=== PATIENT | male | born 1980 ===

== ENCOUNTER 2018-02-21 01:27 | Inpatient (IN) | payer SELFPAY ==
--- NOTE | 2018-02-21 01:48 | C.PDOC ---
History Of Present Illness 37 year old male presents to the ED complaining of rectal bleeding for over month month and palpitations on exertion. Denies any chest pain, abdominal pain, back pain, melena, n/v/d, fever, chills, cough, sob, or any other symptoms. Chief Complaint (Nursing): Abdominal Pain History Per: Patient History/Exam Limitations: no limitations Onset/Duration Of Symptoms: Days Current Symptoms Are (Timing): Still Present Associated Symptoms: denies: Fever, Chills, Nausea, Vomiting, Diarrhea, Constipation, Urinary Symptoms Past Medical History Reviewed: Historical Data, Nursing Documentation, Vital Signs Vital Signs: Last Vital Signs Temp 98.7 F 02/21/18 01:37 Pulse 83 02/21/18 01:37 Resp 20 02/21/18 01:37 BP 155/89 H 02/21/18 01:37 Pulse Ox 100 02/21/18 01:37 - Medical History PMH: No Chronic Diseases Surgical History: No Surg Hx Family History: States: No Known Family Hx - Social History Hx Alcohol Use: Yes Hx Substance Use: No Review Of Systems Except As Marked, All Systems Reviewed And Found Negative. Constitutional: Negative for: Fever, Chills Cardiovascular: Positive for: Palpitations. Negative for: Chest Pain Respiratory: Negative for: Cough Gastrointestinal: Positive for: Hematochezia. Negative for: Nausea, Vomiting, Abdominal Pain, Diarrhea, Melena Musculoskeletal: Negative for: Back Pain Physical Exam - Physical Exam Appears: Non-toxic Skin: Warm, Dry Head: Normacephalic Eye(s): bilateral: Conjunctiva Pale Ear(s): Bilateral: Normal Nose: Normal Oral Mucosa: Moist Neck: Normal ROM, Supple Chest: Symmetrical Cardiovascular: Rhythm Regular, No Murmur Respiratory: Normal Breath Sounds, No Rales, No Rhonchi, No Wheezing Gastrointestinal/Abdominal: Soft, No Tenderness Rectal: No Melena, Blood Streaked Stool, Hemorrhoids (external hemorrhoid 3 o'clock position) Extremity: Normal ROM Extremity: Bilateral: Atraumatic Neurological/Psych: Oriented x3, Normal Speech Gait: Steady ED Course And Treatment - Laboratory Results Result Diagrams: 02/21/18 02:12 02/21/18 02:12 ECG: Interpreted By Me, Viewed By Me ECG Rhythm: Sinus Rhythm, ST/T Changes ECG Interpretation: No Acute Changes, Abnormal Interpretation Of ECG: NSR, ST-T abnormality-infero lateral laeds. abnormal tracings. Rate From EC O2 Sat by Pulse Oximetry: 100 (RA) Pulse Ox Interpretation: Normal - Other Rad CXR X-Ray: Viewed By Me, Read By Radiologist Interpretation: Chest, 2 views. Indication: Shortness of breath on exertion. Findings: The cardiac silhouette is mildly enlarged. There is mild central pulmonary venous congestion.There is bilateral peribronchial interstitial thickening suggestive of bronchitis. Unremarkable bony framework. Impression: Mild cardiomegaly. Mild central pulmonary venous congestion. Bronchitis/interstitial pulmonary congestion. . Electronically signed on Feb 21, 2018 4:28:23 AM EST by: Barb Leal M.D., Certified by [facility], MSK, Neuroradiology Medical Decision Making Medical Decision Making: Plan - Bloodwork - EKG - CXR - Old records reviewed. EKG 04/29/16, NSR, HR 61 bpm. Disposition Discussed With Dr.: Mark Jonas Doctor Will See Patient In The: Hospital Counseled Patient/Family Regarding: Diagnosis - Disposition Disposition: HOSPITALIZED Disposition Time: 02:59 Condition: STABLE - Clinical Impression Clinical Impression: Rectal bleed, Anemia - Scribe Statement The provider has reviewed the documentation as recorded by the Scribe Jennifer López All medical record entries made by the Sidibe were at my direction and personally dictated by me. I have reviewed the chart and agree that the record accurately reflects my personal performance of the history, physical exam, medical decision making, and the department course for this patient. I have also personally directed, reviewed, and agree with the discharge instructions and disposition.
[2018-02-21 02:23] LABS: ALB/GLOB RATIO 1.8 (1.0-2.1); ALBUMIN 4.6 g/dL (3.5-5.0); ALT/SGPT 161 U/L (21-72); AST/SGOT 126 U/L (17-59); BLOOD UREA NITROGEN 13 mg/dL (9-20); CALCIUM 8.9 mg/dl (8.6-10.4); GFR NON-AFRICAN AMERICAN > 60; LIPASE 181 U/L (23-300)
[2018-02-21] MEDS ORDERED: Potassium Chloride 20 mEq/15 ml LIQ UD PO STA (02:25)
[2018-02-21 02:33] LABS: INR 1.1; PARTIAL THROMBOPLASTIN TIME 31 SECONDS (21-34)
[2018-02-21 02:38] LABS: BASO # 0.2 K/uL (0.0-0.2); EOS # 0.2 K/uL (0.0-0.7); EOS % 3.1 % (0.0-4.0); LYMPH # 1.6 K/uL (1.0-4.3); LYMPH % 30.5 % (20.0-40.0); MEAN CELL VOLUME 73.4 fL (80.0-94.0); MEAN CORPUSCULAR HEMOGLOBIN 23.2 pg (27.0-31.0); MEAN CORPUSCULAR HGB CONC 31.6 g/dL (33.0-37.0); MEAN PLATELET VOLUME 7.7 fL (7.2-11.7); MONO # 0.4 K/uL (0.0-0.8); MONO % 8.5 % (0.0-10.0); NEUT # 2.9 K/uL (1.8-7.0); NEUT % 54.8 % (50.0-75.0); NRBC % 1.8 % (0.0-2.0); PLATELET COUNT 220 K/uL (130-400); RBC 2.35 Mil/uL (4.40-5.90); WHITE BLOOD COUNT 5.2 K/uL (4.8-10.8)
[2018-02-21 02:39] LABS: URINE BILIRUBIN NEGATIVE (NEGATIVE); URINE BLOOD NEGATIVE (NEGATIVE); URINE CLARITY Clear (Clear); URINE COLOR Straw (YELLOW); URINE GLUCOSE (UA) NORMAL (Normal); URINE LEUKOCYTE ESTERASE NEG Leu/uL (Negative); URINE PROTEIN NEGATIVE (NEGATIVE); URINE UROBILINOGEN NORMAL mg/dL (0.2-1.0)
[2018-02-21 02:41] LABS: BASO % 3.1 % (0.0-2.0); HEMOGLOBIN 5.5 g/dL (12.0-18.0)
[2018-02-21 02:56] LABS: D DIMER < 200 ng/mlDDU (0-243)
[2018-02-21] MEDS ORDERED: Potassium Chloride 10 mEq ER Tab PO ONE (03:16)
[2018-02-21 04:17] LABS: B-TYPE NATRIURETIC PEPTIDE 139 pg/mL (0-450)
[2018-02-21] MEDS ORDERED: Pantoprazole 80 MG in Sodium Chloride 0.9% 100 ML IVP SCH (04:45)
[2018-02-21] MEDS ORDERED: Multivitamin (MVI) 10 ML, Thiamine 100 MG, Folic Acid 1 MG in Sodium Chloride 0.9% 1,00... IV ONE (04:51)
[2018-02-21 06:16] LABS: ANISOCYTOSIS MARKED; BANDS 2 % (0-2); EOSINOPHIL 2 % (0-4); LYMPHOCYTE 24 % (20-40); MONOCYTE 3 % (0-10); NEUTROPHIL 69 % (50-75); PLATELET ESTIMATE NORMAL (NORMAL); POIKILOCYTOSIS MARKED; TOTAL CELLS COUNTED 100
[2018-02-21 06:17] LABS: HYPOCHROMIC MODERATE; MICROCYTOSIS MODERATE; POLYCHROMIC SLIGHT; SPHEROCYTES MODERATE; TARGET CELLS MODERATE
[2018-02-21 06:18] LABS: GIANT PLATELETS PRESENT; LARGE PLATELETS PRESENT; OVALOCYTES MODERATE; SCHISTOCYTES MODERATE
--- NOTE | 2018-02-21 07:48 | CP.PCM.PN ---
Subjective - Date & Time of Evaluation Date of Evaluation: 02/21/18 Time of Evaluation: 07:48 - Subjective Subjective: PGY-1 Medicine progress note for Dr. Jaylon Iverson Patient seen and examined at bedside. Patient received 2 units of PRBC. Patient states that he feels better and less tired from this morning. He has no complaints at this time. He denies fevers, chills, headaches, shortness of breath, chest pain, abdominal pain, nausea, vomiting, or diarrhea. Objective - Vital Signs/Intake and Output Vital Signs (last 24 hours): Temp Pulse Resp BP Pulse Ox 98.5 F 72 19 128/68 100 02/21/18 07:10 02/21/18 07:10 02/21/18 07:10 02/21/18 07:10 02/21/18 07:10 Intake and Output: 02/21/18 02/21/18 06:59 18:59 Output Total 3000 Balance -3000 - Medications Medications: Current Medications Pantoprazole Sodium 80 mg/ (Sodium Chloride) 100 mls @ 10 mls/hr IVP .Q10H NING Last Admin: 02/21/18 05:39 Dose: 10 mls/hr Multivitamins/Vitamin C 10 ml/Thiamine HCl 100 mg/ Folic Acid 1 mg/ Sodium Chloride 1,011.2 mls @ 100 mls/hr IV .Q10H7M ONE Stop: 02/21/18 14:57 - Labs Labs: 02/21/18 02:12 02/21/18 02:12 PT 12.0 SECONDS (9.7-12.2) 02/21/18 02:12 INR 1.1 02/21/18 02:12 APTT 31 SECONDS (21-34) 02/21/18 02:12 - Constitutional Appears: Well, Non-toxic, No Acute Distress - Head Exam Head Exam: ATRAUMATIC, NORMOCEPHALIC - Eye Exam Eye Exam: EOMI, Normal appearance - ENT Exam ENT Exam: Mucous Membranes Moist - Neck Exam Neck Exam: Normal Inspection - Respiratory Exam Respiratory Exam: Clear to Ausculation Bilateral. absent: Rales, Rhonchi, Wheezes, Respiratory Distress - Cardiovascular Exam Cardiovascular Exam: REGULAR RHYTHM, +S1, +S2. absent: Gallop, Rubs, Murmur - GI/Abdominal Exam GI & Abdominal Exam: Soft, Normal Bowel Sounds. absent: Distended, Guarding, Tenderness - Rectal Exam Rectal Exam: Bloody Stool, Hemorrhoids (External hemorrhoids noted ) - Extremities Exam Extremities Exam: Normal Inspection - Neurological Exam Neurological Exam: Alert, Awake, Oriented x3 - Psychiatric Exam Psychiatric exam: Normal Affect, Normal Mood - Skin Skin Exam: Dry, Intact, Normal Color, Warm Assessment and Plan - Assessment and Plan (Free Text) Assessment: 37 year old male with PMHx of impaired glucose tolerance and HLD presents with rectal bleeding and severe anemia. Plan: GI bleed: - Likely 2/2 to external hemorrhoids - S/p 2 units PRBC - Hgb: 5.5--> 7.5 - Repeat CBC: f/u - Ordered 2 units of PRBC - Pre-medicate with Tylenol 650mg PO and Diphenhydramine 25mg PO, 30 minutes before each transfusion - EKG: NSR @77bpm, non-specific T wave abnormality - Advance to liquid diet - GI, Dr. Peugero consulted - Patient will get a colonoscopy outpatient as per GI - f/u iron studies - f/u b12, folate - Continue to monitor Hx of IGT: - Follow up outpatient - Convention Services Manager on lifestyle modification Hx of HLD: - Patient not on any medications - Convention Services Manager on lifestyle modification - Follow up outpatient Prophylaxis: - SCDs - Chemical anticoagulation contraindicated - Protonix 40mg IV Q12 Case discussed with attending, Dr. Jaylon iVllasenor, PGY-1
[2018-02-21 08:37] LABS: IRON 18 ug/dL (49-181)
[2018-02-21 09:10] LABS: % IRON SATURATION 3 (20-55); TOTAL IRON BINDING CAPACITY 621 ug/dL (250-450)
[2018-02-21 09:34] LABS: FOLATE 11.9 ng/mL
--- NOTE | 2018-02-21 09:38 | CP.PCM.CON ---
History of Present Illness - History of Present Illness History of Present Illness: This is a 37 year old man with rectal bleeding, anemia. Patient reports having daily rectal bleeding for the past month. He has occas ional constipation but no diarrhea. He denies having abdominal pain, rectal pain, difficulty swallowing heartburn, nausea, vomiting. He further denies having chest pain, fever, chills, cough, difficulty breathing. On evaluation in the ER, VS were stable, abdominal examination was benign, but HGB was 5.5, and he was admitted. Review of Systems - Review of Systems All systems: reviewed and no additional remarkable complaints except - Constitutional Constitutional: absent: Chills, Fever - Cardiovascular Cardiovascular: Palpitations. absent: Chest Pain - Respiratory Respiratory: absent: Cough, Dyspnea - Gastrointestinal Gastrointestinal: Constipation, Hematochezia. absent: Abdominal Pain, Diarrhea, Dysphagia, Heartburn, Nausea, Vomiting Past Patient History - Past Social History Smoking Status: Heavy Smoker > 10 Cigarettes Daily - PSYCHIATRIC Hx Substance Use: No - SURGICAL HISTORY Hx Surgeries: No Meds Allergies/Adverse Reactions: Allergies Allergy/AdvReac Type Severity Reaction Status Date / Time No Known Allergies Allergy Verified 02/21/18 01:44 - Medications Medications: Current Medications Pantoprazole Sodium 80 mg/ (Sodium Chloride) 100 mls @ 10 mls/hr IVP .Q10H COUNTS INCLUDE 234 BEDS AT THE [facility] Last Admin: 02/21/18 05:39 Dose: 10 mls/hr Multivitamins/Vitamin C 10 ml/Thiamine HCl 100 mg/ Folic Acid 1 mg/ Sodium Chloride 1,011.2 mls @ 100 mls/hr IV .Q10H7M ONE Stop: 02/21/18 14:57 Last Admin: 02/21/18 07:57 Dose: 100 mls/hr Physical Exam - Constitutional Appears: No Acute Distress - Head Exam Head Exam: ATRAUMATIC, NORMOCEPHALIC - Eye Exam Eye Exam: EOMI, PERRL - Neck Exam Neck exam: Negative for: Lymphadenopathy, Thyromegaly - Respiratory Exam Respiratory Exam: NORMAL BREATHING PATTERN. absent: Rales, Rhonchi, Wheezes - Cardiovascular Exam Cardiovascular Exam: REGULAR RHYTHM, +S1, +S2. absent: Gallop, Rubs, Systolic Murmur - GI/Abdominal Exam GI & Abdominal Exam: Normal Bowel Sounds, Soft. absent: Mass, Organomegaly, Tenderness - Rectal Exam Rectal Exam: Deferred - Extremities Exam Extremities exam: Negative for: calf tenderness, pedal edema Results - Vital Signs Recent Vital Signs: Last Vital Signs Temp 98.2 F 02/21/18 08:53 Pulse 64 02/21/18 08:53 Resp 20 02/21/18 08:53 BP 139/84 02/21/18 08:53 Pulse Ox 100 02/21/18 08:53 - Labs Result Diagrams: 02/21/18 02:12 02/21/18 02:12 Labs: Laboratory Results - last 24 hr 02/21/18 02/21/18 02/21/18 01:37 02:12 02:12 WBC 5.2 RBC 2.35 L Hgb 5.5 L* D Hct 17.2 L MCV 73.4 L D MCH 23.2 L MCHC 31.6 L RDW 21.0 H Plt Count 220 MPV 7.7 Neut % (Auto) 54.8 Lymph % (Auto) 30.5 [place] % (Auto) 8.5 Eos % (Auto) 3.1 Baso % (Auto) 3.1 H Neut # (Auto) 2.9 Lymph # (Auto) 1.6 [place] # (Auto) 0.4 Eos # (Auto) 0.2 Baso # (Auto) 0.2 Neutrophils % (Manual) 69 Band Neutrophils % 2 Lymphocytes % (Manual) 24 Monocytes % (Manual) 3 Eosinophils % (Manual) 2 Platelet Estimate Normal Large Platelets Present Giant Platelets Present Polychromasia Slight Hypochromasia (manual) Moderate Poikilocytosis (manual Marked Anisocytosis (manual) Marked Microcytosis (manual) Moderate Spherocytes Moderate Target Cells Moderate Ovalocytes Moderate Schistocytes Moderate PT 12.0 INR 1.1 APTT 31 D-Dimer, Quantitative < 200 Sodium Potassium Chloride Carbon Dioxide Anion Gap BUN Creatinine Est GFR ( Amer) Est GFR (Non-Af Amer) POC Glucose (mg/dL) 132 H Random Glucose Calcium Iron TIBC % Saturation Total Bilirubin AST ALT Alkaline Phosphatase Troponin I NT-Pro-B Natriuret Pep Total Protein Albumin Globulin Albumin/Globulin Ratio Lipase Vitamin B12 Folate Urine Color Urine Clarity Urine pH Ur Specific [place] Urine Protein Urine Glucose (UA) Urine Ketones Urine Blood Urine Nitrate Urine Bilirubin Urine Urobilinogen Ur Leukocyte Esterase Urine WBC (Auto) Stool Occult Blood Blood Type Blood Type Confirm Antibody Screen 02/21/18 02/21/1802/21/18 02:12 02:12 02:25 WBC RBC Hgb Hct MCV MCH MCHC RDW Plt Count MPV Neut % (Auto) Lymph % (Auto) [place] % (Auto) Eos % (Auto) Baso % (Auto) Neut # (Auto) Lymph # (Auto) [place] # (Auto) Eos # (Auto) Baso # (Auto) Neutrophils % (Manual) Band Neutrophils % Lymphocytes % (Manual) Monocytes % (Manual) Eosinophils % (Manual) Platelet Estimate Large Platelets Giant Platelets Polychromasia Hypochromasia (manual) Poikilocytosis (manual Anisocytosis (manual) Microcytosis (manual) Spherocytes Target Cells Ovalocytes Schistocytes PT INR APTT D-Dimer, Quantitative Sodium 139 Potassium 3.4 L Chloride 106 Carbon Dioxide 23 Anion Gap 14 BUN 13 Creatinine 0.9 Est GFR ( Amer) > 60 Est GFR (Non-Af Amer) > 60 POC Glucose (mg/dL) Random Glucose 106 Calcium 8.9 Iron TIBC % Saturation Total Bilirubin 0.4 AST 126 H ALT 161 H D Alkaline Phosphatase 60 Troponin I < 0.0120 NT-Pro-B Natriuret Pep 139 Total Protein 7.1 Albumin 4.6 Globulin 2.6 Albumin/Globulin Ratio 1.8 Lipase 181 Vitamin B12 Folate Urine Color Urine Clarity Urine pH Ur Specific [place] Urine Protein Urine Glucose (UA) Urine Ketones Urine Blood Urine Nitrate Urine Bilirubin Urine Urobilinogen Ur Leukocyte Esterase Urine WBC (Auto) Stool Occult Blood Negative Blood Type A POSITIVE Blood Type Confirm A POSITIVE Antibody Screen Negative 02/21/18 02/21/18 02/21/18 02:34 07:45 07:45 WBC RBC Hgb Hct MCV MCH MCHC RDW Plt Count MPV Neut % (Auto) Lymph % (Auto) [place] % (Auto) Eos % (Auto) Baso % (Auto) Neut # (Auto) Lymph # (Auto) [place] # (Auto) Eos # (Auto) Baso # (Auto) Neutrophils % (Manual) Band Neutrophils % Lymphocytes % (Manual) Monocytes % (Manual) Eosinophils % (Manual) Platelet Estimate Large Platelets Giant Platelets Polychromasia Hypochromasia (manual) Poikilocytosis (manual Anisocytosis (manual) Microcytosis (manual) Spherocytes Target Cells Ovalocytes Schistocytes PT INR APTT D-Dimer, Quantitative Sodium Potassium Chloride Carbon Dioxide Anion Gap BUN Creatinine Est GFR ( Amer) Est GFR (Non-Af Amer) POC Glucose (mg/dL) Random Glucose Calcium Iron 18 L TIBC 621 H % Saturation 3 L Total Bilirubin AST ALT Alkaline Phosphatase Troponin I NT-Pro-B Natriuret Pep Total Protein Albumin Globulin Albumin/Globulin Ratio Lipase Vitamin B12 606 Folate 11.9 Urine Color Straw Urine Clarity Clear Urine pH 7.0 Ur Specific [place] 1.010 Urine Protein Negative Urine Glucose (UA) Normal Urine Ketones Negative Urine Blood Negative Urine Nitrate Negative Urine Bilirubin Negative Urine Urobilinogen Normal Ur Leukocyte Esterase Neg Urine WBC (Auto) < 1 Stool Occult Blood Blood Type Blood Type Confirm Antibody Screen Assessment & Plan (1) Lower GI bleed Assessment and Plan: Patient has persistent rectal bleeding for the past month. HGB on admission is 5.5, and iron level is low. The initial stool for occult blood was negative. Patient should have colonoscopy after transfusion. Status: Acute
--- NOTE | 2018-02-21 09:41 | RAD ---
Date of service: 02/21/2018 HISTORY: SOB on exertion COMPARISON: No prior. TECHNIQUE: Chest PA and lateral FINDINGS: LUNGS: Mild venous congestion. Mild patchy increased markings at the lung bases. Right hilar prominence. PLEURA: No significant pleural effusion identified. No pneumothorax apparent. CARDIOVASCULAR: No aortic atherosclerotic calcification present. Normal cardiac size. OSSEOUS STRUCTURES: No significant abnormalities. VISUALIZED UPPER ABDOMEN: Normal. OTHER FINDINGS: None. IMPRESSION: Mild venous congestion. Mild patchy increased markings at the lung bases. Right hilar prominence.
--- NOTE | 2018-02-21 10:19 | CP.PCM.HP ---
<Lindsay Jackson P - Last Filed: 02/21/18 09:59> History of Present Illness - History of Present Illness History of Present Illness: H&P for hospitalist service CC: Rectal bleeding HPI: 37 year old male with PMHx of impaired glucose tolerance and HLD presents to ED with complaints of rectal bleeding for the past month. 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 States he decided to come to ED due to a family member's concern. Patient also complains of palpitations, shortness of breath and chest tightness on exertion. Patient experienced mild generalized abdominal pain a few days ago, which has since resolved spontaneously. Patient reports constipation and having to strain to have a bowel movement. He denies fever, chills, lightheadedness, dizziness, hematuria, cough, vomiting, and hematemesis. PMHx: impaired glucose tolerance and HLD PSHx: denies Meds: none Allergies: NKDA FamHx: Brother, 43 years old has lung cancer and stomach cancer SocHx: former smoker, used to smoke 5 cigarettes per day for 3 years. Drinks alcohol once a week 10-15 beers, has gotten shakes before. Last drink was 20 days ago. 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 Lives in [place], was in [place] to visit his brother. PMD: Lis Latifueroa in [place] Code status: full code Review of Systems: -Gen: No fever, No chills, No headache, No lethargy, No weakness. -HEENT: No dizziness, No change in vision, No change in hearing, No sore throat, No dysphagia, No nasal congestion, No mucous. -Cardio: + chest pain, + palpitations, No lower extremity edema, No orthopnea. -Resp: No cough, No dyspnea, No hemoptysis, No wheezing, No pain on inspiration. -GI: + abdominal pain, + nausea, No vomiting, No diarrhea, +constipation, + hematochezia, No hematemesis. -: No dysuria, No urinary freq, No incontinence, No hematuria, No change in urinary stream. -MSK: No back pain, No muscle weakness, No radiating pain. -Skin: No itching, No rash, No lesions. -Neuro: No confusion, No numbness, No tingling, No focal weakness, No radicular pain, No syncope. -Psych: No anxiety, No depression, No H/I, No S/I, No hallucinations. Present on Admission - Present on Admission Any Indicators Present on Admission: No Past Patient History - Past Social History Smoking Status: Heavy Smoker > 10 Cigarettes Daily - PSYCHIATRIC Hx Substance Use: No - SURGICAL HISTORY Hx Surgeries: No Meds Allergies/Adverse Reactions: Allergies Allergy/AdvReac Type Severity Reaction Status Date / Time No Known Allergies Allergy Verified 02/21/18 01:44 Physical Exam - Constitutional Appears: Non-toxic, No Acute Distress - Head Exam Head Exam: ATRAUMATIC, NORMOCEPHALIC - Eye Exam Eye Exam: EOMI, Normal appearance, PERRL - ENT Exam ENT Exam: Mucous Membranes Dry - Neck Exam Neck exam: Positive for: Full Rom, Normal Inspection. Negative for: Lymphadenopathy, Tenderness - Respiratory Exam Respiratory Exam: Clear to Auscultation Bilateral. absent: Rales, Rhonchi, Wheezes - Cardiovascular Exam Cardiovascular Exam: REGULAR RHYTHM, +S1, +S2 - GI/Abdominal Exam GI & Abdominal Exam: Normal Bowel Sounds, Soft. absent: Guarding, Rebound, Tenderness - Extremities Exam Extremities exam: Positive for: full ROM, normal capillary refill, pedal pulses present. Negative for: calf tenderness, tenderness - Neurological Exam Neurological exam: Alert, CN II-XII Intact, Oriented x3 - Psychiatric Exam Psychiatric exam: Normal Affect, Normal Mood - Skin Skin Exam: Dry, Intact, Normal Color, Warm Results - Vital Signs Recent Vital Signs: Last Vital Signs Temp 98.2 F 02/21/18 08:53 Pulse 64 02/21/18 08:53 Resp 20 02/21/18 08:53 BP 139/84 02/21/18 08:53 Pulse Ox 100 02/21/18 08:53 - Labs Result Diagrams: 02/21/18 02:12 02/21/18 02:12 Labs: Laboratory Results - last 24 hr 02/21/18 02/21/18 02/21/18 01:37 02:12 02:12 WBC 5.2 RBC 2.35 L Hgb 5.5 L* D Hct 17.2 L MCV 73.4 L D MCH 23.2 L MCHC 31.6 L RDW 21.0 H Plt Count 220 MPV 7.7 Neut % (Auto) 54.8 Lymph % (Auto) 30.5 Moca % (Auto) 8.5 Eos % (Auto) 3.1 Baso % (Auto) 3.1 H Neut # (Auto) 2.9 Lymph # (Auto) 1.6 Moca # (Auto) 0.4 Eos # (Auto) 0.2 Baso # (Auto) 0.2 Neutrophils % (Manual) 69 Band Neutrophils % 2 Lymphocytes % (Manual) 24 Monocytes % (Manual) 3 Eosinophils % (Manual) 2 Platelet Estimate Normal Large Platelets Present Giant Platelets Present Polychromasia Slight Hypochromasia (manual) Moderate Poikilocytosis (manual Marked Anisocytosis (manual) Marked Microcytosis (manual) Moderate Spherocytes Moderate Target Cells Moderate Ovalocytes Moderate Schistocytes Moderate PT 12.0 INR 1.1 APTT 31 D-Dimer, Quantitative < 200 Sodium Potassium Chloride Carbon Dioxide Anion Gap BUN Creatinine Est GFR ( Amer) Est GFR (Non-Af Amer) POC Glucose (mg/dL) 132 H Random Glucose Calcium Iron TIBC % Saturation Total Bilirubin AST ALT Alkaline Phosphatase Troponin I NT-Pro-B Natriuret Pep Total Protein Albumin Globulin Albumin/Globulin Ratio Lipase Vitamin B12 Folate Urine Color Urine Clarity Urine pH Ur Specific [place] Urine Protein Urine Glucose (UA) Urine Ketones Urine Blood Urine Nitrate Urine Bilirubin Urine Urobilinogen Ur Leukocyte Esterase Urine WBC (Auto) Stool Occult Blood Blood Type Blood Type Confirm Antibody Screen 02/21/18 02/21/18 02/21/18 02:12 02:12 02:25 WBC RBC Hgb Hct MCV MCH MCHC RDW Plt Count MPV Neut % (Auto) Lymph % (Auto) Moca % (Auto) Eos % (Auto) Baso % (Auto) Neut # (Auto) Lymph # (Auto) Moca # (Auto) Eos # (Auto) Baso # (Auto) Neutrophils % (Manual) Band Neutrophils % Lymphocytes % (Manual) Monocytes % (Manual) Eosinophils % (Manual) Platelet Estimate Large Platelets Giant Platelets Polychromasia Hypochromasia (manual) Poikilocytosis (manual Anisocytosis (manual) Microcytosis (manual) Spherocytes Target Cells Ovalocytes Schistocytes PT INR APTT D-Dimer, Quantitative Sodium 139 Potassium 3.4 L Chloride 106 Carbon Dioxide 23 Anion Gap 14 BUN 13 Creatinine 0.9 Est GFR ( Amer) > 60 Est GFR (Non-Af Amer) > 60 POC Glucose (mg/dL) Random Glucose 106 Calcium 8.9 Iron TIBC % Saturation Total Bilirubin 0.4 AST 126 H ALT 161 H D Alkaline Phosphatase 60 Troponin I < 0.0120 NT-Pro-B Natriuret Pep 139 Total Protein 7.1 Albumin 4.6 Globulin 2.6 Albumin/Globulin Ratio 1.8 Lipase 181 Vitamin B12 Folate Urine Color Urine Clarity Urine pH Ur Specific [place] Urine Protein Urine Glucose (UA) Urine Ketones Urine Blood Urine Nitrate Urine Bilirubin Urine Urobilinogen Ur Leukocyte Esterase Urine WBC (Auto) Stool Occult Blood Negative Blood Type A POSITIVE Blood Type Confirm A POSITIVE Antibody Screen Negative 02/21/18 02/21/18 02/21/18 02:34 07:45 07:45 WBC RBC Hgb Hct MCV MCH MCHC RDW Plt Count MPV Neut % (Auto) Lymph % (Auto) Moca % (Auto) Eos % (Auto) Baso % (Auto) Neut # (Auto) Lymph # (Auto) Moca # (Auto) Eos # (Auto) Baso # (Auto) Neutrophils % (Manual) Band Neutrophils % Lymphocytes % (Manual) Monocytes % (Manual) Eosinophils % (Manual) Platelet Estimate Large Platelets Giant Platelets Polychromasia Hypochromasia (manual) Poikilocytosis (manual Anisocytosis (manual) Microcytosis (manual) Spherocytes Target Cells Ovalocytes Schistocytes PT INR APTT D-Dimer, Quantitative Sodium Potassium Chloride Carbon Dioxide Anion Gap BUN Creatinine Est GFR ( Amer) Est GFR (Non-Af Amer) POC Glucose (mg/dL) Random Glucose Calcium Iron 18 L TIBC 621 H % Saturation 3 L Total Bilirubin AST ALT Alkaline Phosphatase Troponin I NT-Pro-B Natriuret Pep Total Protein Albumin Globulin Albumin/Globulin Ratio Lipase Vitamin B12 606 Folate 11.9 Urine Color Straw Urine Clarity Clear Urine pH 7.0 Ur Specific [place] 1.010 Urine Protein Negative Urine Glucose (UA) Normal Urine Ketones Negative Urine Blood Negative Urine Nitrate Negative Urine Bilirubin Negative Urine Urobilinogen Normal Ur Leukocyte Esterase Neg Urine WBC (Auto) < 1 Stool Occult Blood Blood Type Blood Type Confirm Antibody Screen Assessment & Plan - Assessment and Plan (Free Text) Plan: 37 year old male with PMHx of impaired glucose tolerance and HLD presents with rectal bleeding and severe anemia. GI bleed Anemia -Hgb: 5.5 -EKG: NSR @77bpm, non-specific T wave abnormality -NPO -IVF at 100ml/hr -Protonix drip -GI, Dr. Peguero, consulted -Type and cross -Type and screen -Transfuse 2 u PRBC -f/u iron studies -f/u b12, folate -Repeat CBC Hx of IGT -follow up outpatient -Tank Officer on lifestyle modification Hx HLD -Patient not on any medications -Tank Officer on lifestyle modification -follow up outpatient Prophylaxis -SCDs -chemical anticoagulation contraindicated -Protonix drip Case discussed with attending, Dr. Jonas. <Mark Jonas - Last Filed: 02/22/18 19:13> Results - Vital Signs Recent Vital Signs: Last Vital Signs Temp 97.8 F 02/22/18 07:00 Pulse 55 L 02/22/18 07:00 Resp 20 02/22/18 07:00 BP 126/78 02/22/18 07:00 Pulse Ox 98 02/22/18 07:00 - Labs Result Diagrams: 02/22/18 11:24 02/22/18 11:24 Labs: Laboratory Results - last 24 hr 02/21/18 02/21/18 02/22/18 02:25 18:34 11:24 WBC RBC Hgb Hct MCV MCH MCHC RDW Plt Count MPV Neut % (Auto) Lymph % (Auto) Moca % (Auto) Eos % (Auto) Baso % (Auto) Neut # (Auto) Lymph # (Auto) Moca # (Auto) Eos # (Auto) Baso # (Auto) Neutrophils % (Manual) 61 Band Neutrophils % 2 Lymphocytes % (Manual) 22 Monocytes % (Manual) 8 Eosinophils % (Manual) 5 H Basophils % (Manual) 1 Myelocytes % 1 H Nucleated RBC % Platelet Estimate Normal Plt Clumps, EDTA Giant Platelets Hypochromasia (manual) Moderate Anisocytosis (manual) Moderate Ovalocytes Sodium Potassium Chloride Carbon Dioxide Anion Gap BUN Creatinine Est GFR ( Amer) Est GFR (Non-Af Amer) Random Glucose Calcium Phosphorus Magnesium Ferritin 13.5 Total Bilirubin AST ALT Alkaline Phosphatase Total Protein Albumin Globulin Albumin/Globulin Ratio Triglycerides Cholesterol LDL Cholesterol Direct HDL Cholesterol Hepatitis A IgM Ab Hep Bs Antigen Hep B Core IgM Ab Hepatitis C Antibody HIV 1&2 Antibody Screen Blood Type A POSITIVE Blood Type Confirm A POSITIVE Antibody Screen Negative 1102/22/18 02/22/18 11:24 11:24 11:24 WBC 4.3 L RBC 3.84 L Hgb 9.8 L D Hct 30.0 L MCV 78.2 L D MCH 25.6 L MCHC 32.7 L RDW 20.2 H Plt Count 213 MPV 7.7 Neut % (Auto) 58.8 Lymph % (Auto) 24.9 Moca % (Auto) 8.5 Eos % (Auto) 4.2 H Baso % (Auto) 3.6 H Neut # (Auto) 2.5 Lymph # (Auto) 1.1 Moca # (Auto) 0.4 Eos # (Auto) 0.2 Baso # (Auto) 0.2 Neutrophils % (Manual) 58 Band Neutrophils % 1 Lymphocytes % (Manual) 24 Monocytes % (Manual) 8 Eosinophils % (Manual) 5 H Basophils % (Manual) 4 H Myelocytes % Nucleated RBC % 5 H Platelet Estimate Normal Plt Clumps, EDTA Giant Platelets Present Hypochromasia (manual) Slight Anisocytosis (manual) Moderate Ovalocytes Slight Sodium 137 Potassium 3.8 Chloride 101 Carbon Dioxide 24 Anion Gap 15 BUN 9 Creatinine 0.7 L Est GFR ( Amer) > 60 Est GFR (Non-Af Amer) > 60 Random Glucose 89 Calcium 9.2 Phosphorus 4.0 Magnesium 2.2 Ferritin Total Bilirubin 0.9 AST 68 H D ALT 118 H D Alkaline Phosphatase 63 Total Protein 7.2 Albumin 4.6 Globulin 2.6 Albumin/Globulin Ratio 1.8 Triglycerides 323 H Cholesterol 161 LDL Cholesterol Direct 63 HDL Cholesterol 35 Hepatitis A IgM Ab Negative Hep Bs Antigen Negative Hep B Core IgM Ab Negative Hepatitis C Antibody Negative HIV 1&2 Antibody Screen Blood Type Blood Type Confirm Antibody Screen 02/22/18 11:24 WBC RBC Hgb Hct MCV MCH MCHC RDW Plt Count MPV Neut % (Auto) Lymph % (Auto) Moca % (Auto) Eos % (Auto) Baso % (Auto) Neut # (Auto) Lymph # (Auto) Moca # (Auto) Eos # (Auto) Baso # (Auto) Neutrophils % (Manual) Band Neutrophils % Lymphocytes % (Manual) Monocytes % (Manual) Eosinophils % (Manual) Basophils % (Manual) Myelocytes % Nucleated RBC % Platelet Estimate Plt Clumps, EDTA Giant Platelets Hypochromasia (manual) Anisocytosis (manual) Ovalocytes Sodium Potassium Chloride Carbon Dioxide Anion Gap BUN Creatinine Est GFR ( Amer) Est GFR (Non-Af Amer) Random Glucose Calcium Phosphorus Magnesium Ferritin Total Bilirubin AST ALT Alkaline Phosphatase Total Protein Albumin Globulin Albumin/Globulin Ratio Triglycerides Cholesterol LDL Cholesterol Direct HDL Cholesterol Hepatitis A IgM Ab Hep Bs Antigen Hep B Core IgM Ab Hepatitis C Antibody HIV 1&2 Antibody Screen Negative Blood Type Blood Type Confirm Antibody Screen Assessment & Plan - Date & Time Date: 02/22/18 (I have seen and examined the patient. I agree with findings and plan of care as documented by Dr. Jackson. Patient with GI bleed and severe anemia. Consult to GI. Transfuse PRBCs. Monitor hemodynamic status. Protonix drip. Monitor for acute changes.) Time: 19:08 Attending/Attestation - Attestation I have personally seen and examined this patient.: Yes I have fully participated in the care of the patient.: Yes I have reviewed all pertinent clinical information: Yes
[2018-02-21] MEDS ORDERED: Pantoprazole 80 MG in Sodium Chloride 0.9% 100 ML IV SCH (16:00)
[2018-02-21 18:37] LABS: BASO # 0.2 K/uL (0.0-0.2); EOS # 0.2 K/uL (0.0-0.7); MONO # 0.4 K/uL (0.0-0.8); NEUT # 3.2 K/uL (1.8-7.0)
[2018-02-21 18:54] LABS: BASO % 3.6 % (0.0-2.0); EOS % 3.2 % (0.0-4.0); LYMPH # 1.1 K/uL (1.0-4.3); LYMPH % 21.8 % (20.0-40.0); MEAN CORPUSCULAR HEMOGLOBIN 23.6 pg (27.0-31.0); MEAN CORPUSCULAR HGB CONC 31.2 g/dL (33.0-37.0); MEAN PLATELET VOLUME 7.3 fL (7.2-11.7); MONO % 7.5 % (0.0-10.0); NEUT % 63.9 % (50.0-75.0); NRBC % 0.9 % (0.0-2.0); PLATELET COUNT 211 K/uL (130-400); RBC 3.18 Mil/uL (4.40-5.90); RED CELL DISTRIBUTION WIDTH 21.5 % (11.5-14.5)
[2018-02-21 18:58] LABS: HEMOGLOBIN 7.5 g/dL (12.0-18.0); MEAN CELL VOLUME 75.7 fL (80.0-94.0)
[2018-02-21 19:09] LABS: BANDS 2 % (0-2); BASOPHIL 1 % (0-2); EOSINOPHIL 5 % (0-4); LYMPHOCYTE 22 % (20-40); MONOCYTE 8 % (0-10); MYELOCYTE 1 % (0-0); NEUTROPHIL 61 % (50-75); TOTAL CELLS COUNTED 100
[2018-02-21 19:10] LABS: ANISOCYTOSIS MODERATE; HYPOCHROMIC MODERATE; PLATELET ESTIMATE NORMAL (NORMAL)
[2018-02-22 05:24] VITALS: RESP 20
--- NOTE | 2018-02-22 07:40 | CP.PCM.PN ---
Subjective - Date & Time of Evaluation Date of Evaluation: 02/22/18 Time of Evaluation: 07:40 Objective - Vital Signs/Intake and Output Vital Signs (last 24 hours): Temp Pulse Resp BP Pulse Ox 97.9 F 51 L 20 120/74 96 02/22/18 05:23 02/22/18 05:23 02/22/18 05:23 02/22/18 05:23 02/22/18 00:00 Intake and Output: 02/22/18 02/22/18 06:59 18:59 Intake Total 700 Balance 700 - Medications Medications: Current Medications Acetaminophen (Tylenol 325mg Tab) 650 mg PO Q3H PRN PRN Reason: Allergy symptoms Last Admin: 02/22/18 01:46 Dose: 650 mg Diphenhydramine HCl (Benadryl) 25 mg PO Q3H PRN PRN Reason: Allergy symptoms Last Admin: 02/22/18 01:46 Dose: 25 mg Ferrous Sulfate (Feosol) 325 mg PO DAILY NING Last Admin: 02/21/18 16:30 Dose: 325 mg Pantoprazole Sodium (Protonix Inj) 40 mg IVP Q12H NING Last Admin: 02/22/18 04:07 Dose: 40 mg - Labs Labs: 02/21/18 18:34 02/21/18 02:12 PT 12.0 SECONDS (9.7-12.2) 02/21/18 02:12 INR 1.1 02/21/18 02:12 APTT 31 SECONDS (21-34) 02/21/18 02:12
[2018-02-22 07:43] VITALS: BP 126/78; PULSE 55; TEMP 97.8; O2SAT 98
[2018-02-22] MEDS ORDERED: Pantoprazole 80 MG in Sodium Chloride 0.9% 100 ML IV SCH (09:00)
[2018-02-22 11:33] LABS: MEAN CORPUSCULAR HEMOGLOBIN 25.6 pg (27.0-31.0); MEAN CORPUSCULAR HGB CONC 32.7 g/dL (33.0-37.0); MEAN PLATELET VOLUME 7.7 fL (7.2-11.7); PLATELET COUNT 213 K/uL (130-400); RBC 3.84 Mil/uL (4.40-5.90); RED CELL DISTRIBUTION WIDTH 20.2 % (11.5-14.5); WHITE BLOOD COUNT 4.3 K/uL (4.8-10.8)
[2018-02-22 11:45] LABS: HEMOGLOBIN 9.8 g/dL (12.0-18.0); MEAN CELL VOLUME 78.2 fL (80.0-94.0)
[2018-02-22 12:08] LABS: ALB/GLOB RATIO 1.8 (1.0-2.1); ALBUMIN 4.6 g/dL (3.5-5.0); ALT/SGPT 118 U/L (21-72); AST/SGOT 68 U/L (17-59); BLOOD UREA NITROGEN 9 mg/dL (9-20); CALCIUM 9.2 mg/dl (8.6-10.4); GFR NON-AFRICAN AMERICAN > 60; HDL CHOLESTEROL 35 mg/dL (30-70)
[2018-02-22 12:13] LABS: BASO % 3.6 % (0.0-2.0); EOS % 4.2 % (0.0-4.0); LYMPH % 24.9 % (20.0-40.0); MONO % 8.5 % (0.0-10.0); NEUT % 58.8 % (50.0-75.0); NRBC % 2.6 % (0.0-2.0)
[2018-02-22 12:14] LABS: BASO # 0.2 K/uL (0.0-0.2); EOS # 0.2 K/uL (0.0-0.7); LYMPH # 1.1 K/uL (1.0-4.3); MONO # 0.4 K/uL (0.0-0.8); NEUT # 2.5 K/uL (1.8-7.0)
[2018-02-22 12:15] LABS: ANISOCYTOSIS MODERATE; BANDS 1 % (0-2); BASOPHIL 4 % (0-2); EOSINOPHIL 5 % (0-4); LDL CHOLESTEROL 63 mg/dL (0-129); LYMPHOCYTE 24 % (20-40); MONOCYTE 8 % (0-10); NEUTROPHIL 58 % (50-75); NUCLEATED RED BLOOD CELL 5 % (0-0); PLATELET ESTIMATE NORMAL (NORMAL); TOTAL CELLS COUNTED 100
[2018-02-22 12:16] LABS: GIANT PLATELETS PRESENT; HYPOCHROMIC SLIGHT; OVALOCYTES SLIGHT
[2018-02-22 12:30] LABS: HEPATITIS A IGM NEGATIVE (NEGATIVE); HEPATITIS B CORE AB NEGATIVE (NEGATIVE)
[2018-02-22 12:42] LABS: HEPATITIS C ANTIBODY NEGATIVE (NEGATIVE)
[2018-02-22 12:55] LABS: HEPATITIS B SURFACE AG Negative (NEGATIVE)
--- NOTE | 2018-02-22 13:26 | CP.PCM.DIS ---
Provider - Provider Date of Admission: 02/21/18 03:08 Attending physician: Sarkis Iverson MD Time Spent in preparation of Discharge (in minutes): 45 Diagnosis - Discharge Diagnosis (1) Anemia Status: Resolved (2) External hemorrhoid Status: Chronic (3) Rectal bleed Status: Chronic Hospital Course - Lab Results Lab Results: Most Recent Lab Values WBC 4.3 K/uL (4.8-10.8) L 02/22/18 11:24 RBC 3.84 Mil/uL (4.40-5.90) L 02/22/18 11:24 Hgb 9.8 g/dL (12.0-18.0) L D 02/22/18 11:24 Hct 30.0 % (35.0-51.0) L 02/22/18 11:24 MCV 78.2 fL (80.0-94.0) L D 02/22/18 11:24 MCH 25.6 pg (27.0-31.0) L 02/22/18 11:24 MCHC 32.7 g/dL (33.0-37.0) L 02/22/18 11:24 RDW 20.2 % (11.5-14.5) H 02/22/18 11:24 Plt Count 213 K/uL (130-400) 02/22/18 11:24 MPV 7.7 fL (7.2-11.7) 02/22/18 11:24 Neut % (Auto) 58.8 % (50.0-75.0) 02/22/18 11:24 Lymph % (Auto) 24.9 % (20.0-40.0) 02/22/18 11:24 [place] % (Auto) 8.5 % (0.0-10.0) 02/22/18 11:24 Eos % (Auto) 4.2 % (0.0-4.0) H 02/22/18 11:24 Baso % (Auto) 3.6 % (0.0-2.0) H 02/22/18 11:24 Neut # (Auto) 2.5 K/uL (1.8-7.0) 02/22/18 11:24 Lymph # (Auto) 1.1 K/uL (1.0-4.3) 02/22/18 11:24 [place] # (Auto) 0.4 K/uL (0.0-0.8) 02/22/18 11:24 Eos # (Auto) 0.2 K/uL (0.0-0.7) 02/22/18 11:24 Baso # (Auto) 0.2 K/uL (0.0-0.2) 02/22/18 11:24 Neutrophils % (Manual) 58 % (50-75) 02/22/18 11:24 Band Neutrophils % 1 % (0-2) 02/22/18 11:24 Lymphocytes % (Manual) 24 % (20-40) 02/22/18 11:24 Monocytes % (Manual) 8 % (0-10) 02/22/18 11:24 Eosinophils % (Manual) 5 % (0-4) H 02/22/18 11:24 Basophils % (Manual) 4 % (0-2) H 02/22/18 11:24 Myelocytes % 1 % (0-0) H 02/21/18 18:34 Nucleated RBC % 5 % (0-0) H 02/22/18 11:24 Platelet Estimate Normal (NORMAL) 02/22/18 11:24 Plt Clumps, EDTA 02/22/18 11:24 Large Platelets Present 02/21/18 02:12 Giant Platelets Present 02/22/18 11:24 Polychromasia Slight 02/21/18 02:12 Hypochromasia (manual) Slight 02/22/18 11:24 Poikilocytosis (manual Marked 02/21/18 02:12 Anisocytosis (manual) Moderate 02/22/18 11:24 Microcytosis (manual) Moderate 02/21/18 02:12 Spherocytes Moderate 02/21/18 02:12 Target Cells Moderate 02/21/18 02:12 Ovalocytes Slight 02/22/18 11:24 Schistocytes Moderate 02/21/18 02:12 PT 12.0 SECONDS (9.7-12.2) 02/21/18 02:12 INR 1.1 02/21/18 02:12 APTT 31 SECONDS (21-34) 02/21/18 02:12 D-Dimer, Quantitative < 200 ng/mlDDU (0-243) 02/21/18 02:12 Sodium 137 mmol/L (132-148) 02/22/18 11:24 Potassium 3.8 mmol/L (3.6-5.2) 02/22/18 11:24 Chloride 101 mmol/L (98-107) 02/22/18 11:24 Carbon Dioxide 24 mmol/L (22-30) 02/22/18 11:24 Anion Gap 15 (10-20) 02/22/18 11:24 BUN 9 mg/dL (9-20) 02/22/18 11:24 Creatinine 0.7 mg/dL (0.8-1.5) L 02/22/18 11:24 Est GFR ( Amer) > 60 02/22/18 11:24 Est GFR (Non-Af Amer) > 60 02/22/18 11:24 POC Glucose (mg/dL) 132 mg/dL (65-110) H 02/21/18 01:37 Random Glucose 89 mg/dL (75-110) 02/22/18 11:24 Calcium 9.2 mg/dl (8.6-10.4) 02/22/18 11:24 Phosphorus 4.0 mg/dL (2.5-4.5) 02/22/18 11:24 Magnesium 2.2 mg/dL (1.6-2.3) 02/22/18 11:24 Iron 18 ug/dL (49-181) L 02/21/18 07:45 TIBC 621 ug/dL (250-450) H 02/21/18 07:45 % Saturation 3 (20-55) L 02/21/18 07:45 Ferritin 13.5 ng/mL 02/22/18 11:24 Total Bilirubin 0.9 mg/dL (0.2-1.3) 02/22/18 11:24 AST 68 U/L (17-59) H D 02/22/18 11:24 ALT 118 U/L (21-72) H D 02/22/18 11:24 Alkaline Phosphatase 63 U/L (38-126) 02/22/18 11:24 Troponin I < 0.0120 ng/mL (0.00-0.120) 02/21/18 02:12 NT-Pro-B Natriuret Pep 139 pg/mL (0-450) 02/21/18 02:12 Total Protein 7.2 g/dL (6.3-8.3) 02/22/18 11:24 Albumin 4.6 g/dL (3.5-5.0) 02/22/18 11:24 Globulin 2.6 gm/dL (2.2-3.9) 02/22/18 11:24 Albumin/Globulin Ratio 1.8 (1.0-2.1) 02/22/18 11:24 Triglycerides 323 mg/dL (0-149) H 02/22/18 11:24 Cholesterol 161 mg/dL (0-199) 02/22/18 11:24 LDL Cholesterol Direct 63 mg/dL (0-129) 02/22/18 11:24 HDL Cholesterol 35 mg/dL (30-70) 02/22/18 11:24 Lipase 181 U/L (23-300) 02/21/18 02:12 Vitamin B12 606 pg/mL (239-931) 02/21/18 07:45 Folate 11.9 ng/mL 02/21/18 07:45 Urine Color Straw (YELLOW) 02/21/18 02:34 Urine Clarity Clear (Clear) 02/21/18 02:34 Urine pH 7.0 (5.0-8.0) 02/21/18 02:34 Ur Specific [place] 1.010 (1.003-1.030) 02/21/18 02:34 Urine Protein Negative mg/dL (NEGATIVE) 02/21/18 02:34 Urine Glucose (UA) Normal mg/dL (Normal) 02/21/18 02:34 Urine Ketones Negative mg/dL (NEGATIVE) 02/21/18 02:34 Urine Blood Negative (NEGATIVE) 02/21/18 02:34 Urine Nitrate Negative (NEGATIVE) 02/21/18 02:34 Urine Bilirubin Negative (NEGATIVE) 02/21/18 02:34 Urine Urobilinogen Normal mg/dL (0.2-1.0) 02/21/18 02:34 Ur Leukocyte Esterase Neg De[place]re/uL (Negative) 02/21/18 02:34 Urine WBC (Auto) < 1 /hpf (0-5) 02/21/18 02:34 Stool Occult Blood Negative (NEGATIVE) 02/21/18 02:12 Hepatitis A IgM Ab Negative (NEGATIVE) 02/22/18 11:24 Hep Bs Antigen Negative (NEGATIVE) 02/22/18 11:24 Hep B Core IgM Ab Negative (NEGATIVE) 02/22/18 11:24 Hepatitis C Antibody Negative (NEGATIVE) 02/22/18 11:24 HIV 1&2 Antibody Screen Negative (NEGATIVE) 02/22/18 11:24 Blood Type A POSITIVE 02/21/18 02:25 Blood Type Confirm A POSITIVE 02/21/18 02:25 Antibody Screen Negative 02/21/18 02:25 - Hospital Course Hospital Course: 37 year old male with PMHx of impaired glucose tolerance and HLD presents to ED with complaints of rectal bleeding for the past month. 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 On admission his hemoglobin was found to be 5.5. After 2 units of PRBC, his Hb was 7.5. He received 2 more units of PRBC and his Hb further increased to 9.8. During the length of his stay, he received Tylenol and Benadryl to prevent transfusion reaction. He was also treated with Iron pills and Protonix. EKG showed NSR @77bpm, non-specific T wave abnormality. CXR showed no active disease. GI (Dr. Peguero) was consulted and recommended that patient have a colonoscopy and endoscopy outpatient. Patient is medically optimized for discharge. Upon discharge, patient was given instructions to: 1). Schedule an appointment with the [facility] located at [facility] located at [address] [place] [address] in [place], [place] by calling [phone] for an appointment to take place in the next 7 days. Through this clinic you should establish care for them to be your primary care physician and they will help you to arrange for an Upper Endoscopy and Colonoscopy for further evaluation of your bleeding. 2). You must STOP drinking alcohol as this is likely contributing to your bleeding, possibly causing ulcers. Call [phone] to find an Alcohol Anonymous meeting near you. 3). You should have the following prescription filled at your pharmacy on the way home from the hospital: Omeprazole 40 mg, 1 tablet by mouth 1x/day (8 AM with breakfast), Dispense #30, NO refills 4). Should your symptoms return, please go to the nearest Emergency Room. 5). Failure to follow the above instructions will result in serious harm to your health. 6). Please be good to yourself and take care. Discharge Exam - Head Exam Head Exam: ATRAUMATIC, NORMOCEPHALIC - Additional Findings Additional findings: - Constitutional Appears: Well, Non-toxic, No Acute Distress - Head Exam Head Exam: ATRAUMATIC, NORMOCEPHALIC - Eye Exam Eye Exam: EOMI, Normal appearance - ENT Exam ENT Exam: Mucous Membranes Moist - Neck Exam Neck Exam: Normal Inspection - Respiratory Exam Respiratory Exam: Clear to Ausculation Bilateral. absent: Rales, Rhonchi, Wheezes, Respiratory Distress - Cardiovascular Exam Cardiovascular Exam: REGULAR RHYTHM, +S1, +S2. absent: Gallop, Rubs, Murmur - GI/Abdominal Exam GI & Abdominal Exam: Soft, Normal Bowel Sounds. absent: Distended, Guarding, Tenderness - Extremities Exam Extremities Exam: Normal Inspection - Neurological Exam Neurological Exam: Alert, Awake, Oriented x3 - Psychiatric Exam Psychiatric exam: Normal Affect, Normal Mood - Skin Skin Exam: Dry, Intact, Normal Color, Warm Discharge Plan - Discharge Medications Prescriptions: Omeprazole 40 mg PO DAILY #30 capsule.dr - Follow Up Plan Condition: STABLE Disposition: HOME/ ROUTINE Instructions: Smoking: Not Just Harmful to Your Lungs and Heart, Gastrointestinal Bleeding (DC), Quitting Smoking, Bloody Stools, Adult (DC), Omeprazole Additional Instructions: The following instructions were explained to patient and copy will need to be provided upon discharge: 1). Schedule an appointment with the [facility] located at [facility] [address] located at [address] [place] [address] in [place], [place] by calling [phone] for an appointment to take place in the next 7 days. Through this clinic you should establish care for them to be your primary care physician and they will help you to arrange for an Upper Endoscopy and Colonoscopy for further evaluation of your bleeding. 2). You must STOP drinking alcohol as this is likely contributing to your bleeding, possibly causing ulcers. Call [phone] to find an Alcohol Anonymous meeting near you. 3). You should have the following prescription filled at your pharmacy on the way home from the hospital: Omeprazole 40 mg, 1 tablet by mouth 1x/day (8 AM with breakfast), Dispense #30, NO refills 4). Should your symptoms return, please go to the nearest Emergency Room. 5). Failure to follow the above instructions will result in serious harm to your health. 6). Please be good to yourself and take care. Keyanna GonzalezO. 1). Programe roxanna suzi con el [facility] ubicado en el piso [address] del [facility] ubicado en [address] [facility] en [place], [place] llamando al [phone] para roxanna suzi que tendr lugar en los prximos 7 joyce. A travs de esta clnica, debe establecer la atencin para que ellos kathy henley mdico de atencin primaria y ellos lo ayudarn a organizar roxanna [facility] y roxanna [facility] para roxanna evaluacin adicional de henley sangrado. 2). Debe DETENER el consumo de alcohol, ya que es probable que esto contribuya a henley sangrado y posiblemente cause lceras. Llame al [phone] para encontrar roxanna reunin de Alcohol Anonymous cerca de usted. 3). Usted debe tener la siguiente receta surtida en henley farmacia de justice a casa desde el hospital: Omeprazol 40 mg, 1 comprimido por va oral 1x / da (8 AM con desayuno), dispensado # 30, NO repuestos 4). Si pito sntomas regresan, dirjase a la joseph de emergencias ms cercana. 5). El incumplimiento de las instrucciones anteriores causar graves daos a henley candelario. 6). Por favor s aguilera contigo mismo y cudate. Sarkis Iverson D.O.
[2018-02-22] MEDS ORDERED: Pantoprazole 80 MG in Sodium Chloride 0.9% 100 ML IVPB SCH (19:00)
--- NOTE | 2018-02-23 21:07 | CARD ---
APPROVED REPORT Date of service: 02/21/2018 EKG Measurement Heart [id number] <Conclusion> Normal sinus rhythm Nonspecific ST and T wave abnormality Abnormal ECG
== END 2018-02-22 14:08 | disposition home or self-care (01) | DRG 812 ==
LOC: C.ER 01:27 → C.9E 03:08 → C.5S 10:04
PROVIDERS: ADMIT Family Medicine; ATTEND Family Medicine
PROC: 30233N1 Transfusion of Nonautologous Red Blood Cells into Peripheral Vein, Percutaneous Approach (ICD-10-PCS; principal; 2018-02-21)
DX: D50.0 Iron deficiency anemia secondary to blood loss (chronic) (principal); K64.4 Residual hemorrhoidal skin tags; E78.5 Hyperlipidemia, unspecified; F17.210 Nicotine dependence, cigarettes, uncomplicated